=== PATIENT | male | born 1980 | race Caucasian/White ===

== ENCOUNTER 2017-11-06 17:27 | Inpatient (IN) ==
[2017-11-06] MEDS ORDERED: *HR* OxyCODONE/APAP 5/325 TABLET PO ONE (21:05)
[2017-11-06] MEDS ORDERED: Ondansetron 4 MG/2 ML VIAL IVP PRN (21:29)
[2017-11-06] MEDS ORDERED: *HR* OxyCODONE/APAP 5/325 TABLET PO PRN (21:29)
[2017-11-06] MEDS ORDERED: Naloxone 0.4 MG/ML INJ IVP PRN (21:29)
[2017-11-06] MEDS ORDERED: Acetaminophen 325 MG TABLET PO PRN (21:29)
[2017-11-06] MEDS ORDERED: 0.9 % Sodium Chloride 1,000 ML IVC SCH (21:30)
--- NOTE | 2017-11-06 21:56 | Internal Med History&Physical ---
Date of Encounter: 11/06/17 Time of Encounter: 19:55 Internal Medicine - H&P: HPI Chief complaint: left ankle fracture Admitted From: Hospital to Hospital Transfer Plans for Post Hospital Care: Home History of present illness: Mr. Torre is a 37 year old male who was transferred here from [facility] ER for left ankle tibial fracture. Patient was transferred here for orthopedic care and phone consultation was made with the ER and Dr. Arteaga. He was admitted to hospital service with an orthopedic consult. Upon arrival to the floor, I was notified shortly after arrival. I saw him shortly after arrival and before even arriving to his room, I was notified by his nursing staff the patient was demanding transfer to [facility]. I met with patient and his and inquired the history and events of today. Patient stated he could not feel his toes and that they could not feel pulses in his left foot at [facility]. He demanded transfer to [facility]. I told him and his that I can contact [facility] and/or other Hospitals in the [place] area, but I also worry about compartment syndrome and/or neurovascular injury. I also recommended that I contact Dr. Arteaga for urgent surgical intervention evaluation as transferring him may delay care. I called Dr. Arteaga shortly after I assessed patient and Dr. Arteaga said he could see him within the hour. I informed patient and his and they requested I start calling [place] regardless. I therefore contacted [facility] for possible transfer, but they had no beds available and there were on diversion. I therefore contacted [facility] and spoke with Dr. Soriano from orthopedics at [facility]. He recommended orthopedic evaluation here with surgical intervention if necessary for the remote possibility of compartment syndrome. He also recommended emergent surgical care here rather than transferring up to [facility] as this would delay his care and neurovascular compromise if such is the case. Nonetheless, [facility] was willing to accept him if patient agrees. I therefore discussed again with patient and his , and they agree to stay here to see Dr. Arteaga and then they will decide if transfer is necessary. I contacted Dr. Arteaga again and, at that time, Dr. Arteaga said he will see him within the half hour to 45 minutes as he was finishing his current case. Therefore, for the time being, patient will stay here until he sees Dr. Arteaga. He will decide upon transfer at that point if necessary. 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 He was cutting a tree down when the trunk fell on him and crushed his left leg/ankle causing a fracture and traumatic injury to his leg. He informs me that he cannot feel his toes or move his toes. After I unwrapped his compression dressing, he could move his toes but he still felt numbness in his toes. I requested that he remain nothing by mouth and informed his nurse to keep him nothing by mouth until Dr. Arteaga sees him and can determine if he needs surgery at this moment or not. Past Med Surg Social Fam HX - Past Medical History Attestation: Yes The following information was validated with the patient. Source: patient, obtained from family, other ([facility] records) Medical history: no medical history Psychiatric history: no psych history - Past Surgical History Surgical History: orthopedic, other (left leg) - Social History Smoking Status: Current every day smoker Smokeless Tobacco Status: No Alcohol use: occasionally Drug use: none Occupational status: employed Current living situation: Home, With Family Activity Level: Independent ambulation Recent Out of Country Travel Within the Last 8 Weeks: No - Family History Mother History Unknown: Yes Father History Unknown: Yes Internal Medicine - H&P: Meds No Known Home Drugs 11/06/17 [History] 3 Allergy/AdvReac Type Severity Reaction Status Date / Time Penicillins Allergy Anaphylaxis Verified 11/06/17 15:50 - Constitutional Constitutional: no chills, no fever(s) - EENT Eyes: no change in vision Ears: no ear pain, no tinnitus Nose, mouth and throat: no nasal congestion, no sore throat - Cardiovascular Cardiovascular ROS IM: no chest pain, no dyspnea, no dyspnea on exertion - Respiratory Respiratory: no cough, no dyspnea, no hemoptysis - Gastrointestinal Gastrointestinal: no abdominal pain, no diarrhea, no vomiting - Genitourinary Genitourinary ROS male: no dysuria, no flank pain - Musculoskeletal Musculoskeletal ROS IM: arthralgias, joint swelling (left ankle), numbness ( left foot/toes) - Integumentary Integumentary IM: no rash - Neurological Neurological ROS: focal weakness (left foot/toes), no frequent falls, no headache(s) - Psychiatric Psychiatric: no anxiety, no depression - Endocrine Endocrine IM: no polydipsia, no polyphagia, no polyuria - Allergic/Immunologic Allergic/Immunologic: no GI upset with certain foods - Constitutional Vitals: Temp Pulse Resp BP 97.4 F L 81 16 122/76 11/06/17 19:06 11/06/17 19:06 11/06/17 19:06 11/06/17 19:06 General appearance: Present: cooperative, A&O X 3, pleasant, answers questions appropriately Exam: see below - Head Head exam: Present: atraumatic, normal inspection - Eye Eye exam: Present: EOMI, PERRL. Absent: scleral icterus Pupils: Present: normal accommodation - ENT ENT exam: Present: mucous membranes dry, normal exam, normal oropharynx - Neck Neck exam general surgery: Present: full ROM, supple. Absent: tenderness, nuchal rigidity, thyromegaly - Respiratory Respiratory exam: Present: CTAB. Absent: chest wall tenderness, rales, rhonchi , wheezes - Cardiovascular Cardiovascular exam: Present: RRR, +S1, +S2. Absent: diastolic murmur, systolic murmur - GI/Abdominal GI/Abdominal exam: Present: normal bowel sounds, soft. Absent: hepatomegaly, mass, splenomegaly, tenderness - Extremities Exam Extremities exam: Present: joint swelling (left ankle/wrapped/dressed), tenderness, warm Additional comments: decreased sensation left toes; improved after removal of dressing/GUTIERREZ WRAP - Back Exam Back exam: Present: normal inspection. Absent: CVA tenderness (L), CVA tenderness (R) - Neurological Exam Neurological exam: Present: alert, CN II-XII intact, oriented X3 Additional comments: decreased sensation in left foot/toes -- improved after GUTIERREZ wrap removal - Psychiatric Psychiatric exam: Present: normal affect, normal mood - Skin Skin exam: Present: dry, intact, warm Additional comments: right ankle abrasion; left foot/leg wrapped Internal Med - H&P Results - Labs CBC & Chem 7: 11/06/17 23:01 11/06/17 23:01 - Diagnostic Studies Other Images Status: image reviewed by me (left ankle/tibial fracture noted; reprot reviewed) - Assessment and plan (1) Fracture of left lower extremity Current Visit: Yes Status: Acute Assessment and plan: 1. Multiple discussions with patient, , Dr. Arteaga, [facility], and [facility] as above. 2. I discussed again with Dr. Arteaga after he assessed patient. Patient does not have compartment syndrome now and does not need emergent surgery. He will follow patient closely. 3. I discussed with patient and after he was assessed with Dr. Arteaga. At this time, patient wants to stay here and does not want to transfer at this time. 4. Surgery per Dr. Arteaga. Qualifiers: Encounter type: initial encounter Fracture type: closed Qualified Code(s) : S82.92XA - Unspecified fracture of left lower leg, initial encounter for closed fracture (2) Numbness of left foot Current Visit: Yes Status: Resolved Assessment and plan: 1. Resolved after GUTIERREZ wrap removed. 2. Dr. Arteaga to follow closely and monitor for signs and symptoms of compartment syndrome given the nature of the crush injury he sustained. (3) DVT prophylaxis Current Visit: Yes Status: Acute Assessment and plan: 1. Heparin SQ.
--- NOTE | 2017-11-06 22:47 | Orthopedic Consult Note ---
Date of Encounter: 11/06/17 Time of Encounter: 22:32 History of Present Illness Chief complaint: Left foot and ankle pain HPI: Mr. Torre is a 37 year old male who sustained injuries to both lower extremities. Patient is a medical billing supervisor and states that he had cut a large tree when the log came down first struck his right ankle on the medial side and then struck his left leg. Patient was wearing steel toed high top boots at the time. Patient states this occurred approximately 1430 hrs. today. Patient was seen initially at the [facility] emergency room where x-rays taken revealed evidence of left lower extremity fractures. He was transferred to [facility] for further evaluation and management with concern for possible compartment syndrome and neurovascular injury. Patient initially was complaining of numbness in his foot and inability to move his foot and toes. I reviewed the completed history and physical examination as well as other data in the completed medical record. Pertinent orthopedic examination of the right lower extremity shows an abrasion over the distal leg. No hematomas swelling etc. Neurosensory exam is intact. Left lower extremity is evaluated and the compartments in the calf are soft and that they are tender. There is evolving edema and ecchymosis at the level of the ankle. Patient has intact sensation in the foot. He does have an intact EHL and ankle extension. Motion is limited due to pain. Capillary refill is brisk. Dorsalis pedis pulse is palpable. Reviewed x-rays. X-rays of the left hip showed no evidence of fracture dislocation or acute trauma. X-rays of the right tibia and fibula are unremarkable with no evidence of fracture dislocation etc. X-rays of the left tibia and fibula reveal a comminuted relatively transverse fracture of the tibia. This is several centimeters above the ankle mortise. There is minimal angular displacement. There is a vertically oriented medial malleolar fracture with minimal displacement. There is relatively nondisplaced transverse fracture of the distal fibula just below the level of the ankle mortise. Impression: 1. Crush injuries bilateral lower extremities 2. Comminuted fracture left distal tibial diaphysis 3. Bimalleolar fracture left ankle (medial and lateral malleolus fractures) Recommendations: At this time I see no evidence of an acute compartment syndrome. No indication at this time for intracompartmental pressure monitoring nor urgent fasciotomy. I recommend that the patient be admitted for close neurovascular checks. Ice and elevation. I discussed with the patient that his fracture treatment needs to be delayed until neurovascular and skin concerns are resolved. Discussed with the patient that these are surgical fractures that surgery needs to be delayed until we confident that there are no soft tissue concerns that would be more critical at the current time. Patient is somewhat anxious but seemed to understand the treatment plan. We will reevaluate him in 12-24 hours with additional plans depending upon his clinical response. Thank you very much for allowing me to seen care for Mr. Torre. Sincerely, Pato Arteaga,DO Past Med Surg Social Fam HX - Past Medical History Medical history: no medical history Psychiatric history: no psych history - Past Surgical History Surgical History: orthopedic, other (left leg) - Social History Smoking Status: Current every day smoker Smokeless Tobacco Status: No Alcohol use: occasionally Drug use: none - Family History Mother History Unknown: Yes Father History Unknown: Yes Medications and Allergies No Known Home Drugs 11/06/17 [History] 3 Allergy/AdvReac Type Severity Reaction Status Date / Time Penicillins Allergy Anaphylaxis Verified 11/06/17 15:50 All Systems Reviewed: The remainder of the systems were reviewed and are negative Physical Exam - Constitutional Vitals: Temp Pulse Resp BP 97.4 F L 81 16 122/76 11/06/17 19:06 11/06/17 19:06 11/06/17 19:06 11/06/17 19:06 Results - Labs Labs: All other labs normal. - Diagnostic results Hip AP/Lateral x-ray: image reviewed Ankle/Foot x-ray: image reviewed (Tibia and fibula x-rays of both lower extremities reviewed) Consult Discharge Plan - Plan Referrals: NONE,PCP [Primary Care Provider] -
[2017-11-06 23:13] LABS: Basophils % 0.1 %; Eosinophils % 0.1 %; Hematocrit 44.9 % (37.5-50.1); Hemoglobin 15.3 g/dL (12.9-16.9); Immature Granulocytes % 0.4 % (0-4); Lymphocytes % 13.9 %; Mean Corpuscular HGB Conc 34.1 g/dL (31.6-35.5); Mean Corpuscular Hemoglobin 31.3 pg (28.0-33.3); Mean Corpuscular Volume 91.8 fL (83.0-100.0); Mean Platelet Volume 10.2 fL (9.4-12.4); Monocytes # 1.2 K/mcL (0.0-1.3); Monocytes % 8.3 %; Neutrophils # 11.2 K/mcL (1.6-8.9); Platelet Count 232 K/mcL (140-400); Red Blood Count 4.89 M/mcL (4.19-5.50); Red Cell Distribution Width 12.6 % (11.5-14.5); Segmented Neutrophils % 77.2 %
[2017-11-06 23:19] LABS: INR 1.1; Prothrombin Time 12.6 Seconds (9.4-12.1)
[2017-11-06 23:21] LABS: Activated Partial Thrombo Time 29.1 Seconds (26.0-36.0)
[2017-11-06 23:30] LABS: Alanine Aminotransferase 18 Units/L (7-52); Albumin 4.8 g/dL (3.5-5.7); Albumin/Globulin Ratio 1.8 (1.1-2.2); Alkaline Phosphatase 47 Units/L (34-104); Aspartate Amino Transferase 30 Units/L (13-39); BUN/Creatinine Ratio 16 (6-26); Bilirubin,Total 0.8 mg/dL (0.3-1.0); Blood Urea Nitrogen 16 mg/dL (6-20); Carbon Dioxide 29 mEq/L (23-29); Chloride 103 mEq/L (98-107); Globulin 2.6 g/dL (2.4-3.5); Glucose 130 mg/dL (70-105); Osmolality,Calculated 287 (280-300); Sodium 137 mEq/L (136-145); Total Protein 7.4 g/dL (6.4-8.9); eGFR For Non-African Americans > 60 (> 60)
[2017-11-06] MEDS: *HR* FentaNYL (PF) 100 MCG/2 ML VIAL IVP PRN (23:30)
[2017-11-07] MEDS ORDERED: *HR* Heparin 5,000 UNIT/ML VIAL SQ SCH (06:00)
[2017-11-07] MEDS: *HR* FentaNYL (PF) 100 MCG/2 ML VIAL IVP PRN (06:15)
[2017-11-07] MEDS ORDERED: OXYCODONE Oral CONC 10 MG/0.5 ML ORAL.SYG SL PRN ×2 (08:01)
[2017-11-07] MEDS ORDERED: Ketorolac 30 MG/ML VIAL IVP PRN (08:02)
[2017-11-07 11:30] VITALS: BP 126/81
--- NOTE | 2017-11-07 11:32 | Discharge Summary ---
Date of Encounter: 11/07/17 Time of Encounter: 11:29 - Discharge Diagnosis (1) Fracture of left lower extremity Priority: Primary Status: Acute Qualifiers: Encounter type: initial encounter Fracture type: closed Qualified Code(s) : S82.92XA - Unspecified fracture of left lower leg, initial encounter for closed fracture (2) Numbness of left foot Priority: Secondary Status: Acute (3) DVT prophylaxis Priority: Secondary Status: Acute (4) Crush injury lower leg Priority: Secondary Status: Acute Qualifiers: Encounter type: initial encounter Laterality: left Qualified Code(s): S87.82XA - Crushing injury of left lower leg, initial encounter (5) Rhabdomyolysis Priority: Secondary Status: Acute Qualifiers: Rhabdomyolysis type: traumatic Encounter type: initial encounter Qualified Code(s): T79.6XXA - Traumatic ischemia of muscle, initial encounter Hospital course: Mr. Torre is a 37 year old male patient who was transferred here from [facility] with complaints of left lower leg pain following crush injury while he was cutting a tree down. He was found to have comminuted fracture of the left distal tibial diaphysis and bimalleolar fracture of left ankle. He was suspected of having compartment syndrome and orthopedics was consulted who evaluated the patient urgently last night. He was not found to have acute compartment syndrome at that time. Patient wishes to be transferred to [facility] for further care. Orthopedics agrees with this treatment plan. Patient will be transferred to [facility] once he has a bed available there. I have called [facility] and discussed patient's injury and plan of care. They have kindly accepted the patient. In the meantime, patient has been receiving IV fluids and has had elevation in his CPK levels at 70. He does continue to have good pedal pulses. After all arrangements were made for transfer to [facility], patient became upset that she was being sent to the ER there. He was explained that this was due to lack of beds and he would be managed by orthopedist at [facility] and would not need to go through to the ER. He still remained upset and wished to leave [facility]. He understands the risks involved and states that he would go to a different ER and get checked out. Discharge discussed with: patient, family, nurse, national sales consultant - Time Spent with Patient Total time spent providing and/or coordinating discharge services: Greater than 30 minutes (40 min) - Discharge Medications Home Medications: No Known Home Drugs 11/06/17 [History] Allergies/Adverse Reactions: 3 Allergy/AdvReac Type Severity Reaction Status Date / Time Penicillins Allergy Anaphylaxis Verified 11/06/17 15:50 Date of admission: 11/06/17 18:42 Primary care physician: PCP [facility] Consults: 11/06/17 21:31 Consult to Physician [CONS] Routine Consulting Provider: Pato Arteaga Reason for Consult: anle/tibial fracture Time Notified: 21:31 Call Completed: Yes Discharging clinician: Buddy Baez Anticipated date of discharge: 11/07/17 - Constitutional Vitals: Temp Pulse Resp BP Pulse Ox 98.2 F 50 16 143/82 100 11/07/17 07:21 11/07/17 07:21 11/07/17 07:21 11/07/17 07:21 11/07/17 07:21 General appearance: Present: cooperative, A&O X 3, pleasant, answers questions appropriately Exam: General: Patient is alert, no acute distress, oriented x 3 Respiratory: Good respiratory effort. Normal breath sounds. No wheezing or crackles. Cardiovascular: Regular rate and rhythm. s1 and s2 normal No clicks, rubs, gallops, or murmurs. No pedal edema Abdomen: Abdomen is soft, nontender. Bowel sounds are present Musculoskeletal: Left foot and lower leg bandaged. Tender to palpation. Pedal pulses palpable. Skin: warm, dry, intact. Neuro: Alert oriented x 3 normal cranial nerves, no focal deficits - Patient Status Disposition: Left Against Medical Advice Condition: Serious Functional capacity at discharge: bed bound Overall status at discharge: patient is not back to baseline - Discharge Instructions Follow Up With: NONE,PCP [Primary Care Provider] -
== END 2017-11-07 14:40 | disposition left against medical advice (07) | DRG 965 ==
LOC: 3ANU → SUATTDRO 18:42
PROVIDERS: ADMIT Internal Medicine; ATTEND Internal Medicine